=== PATIENT | male | born 1995 | race Caucasian/White ===

== ENCOUNTER 2018-07-19 19:34 | Emergency (ER) | payer OTHER ==
[~2018-07-19] VITALS: Ht 182.9 cm; Wt 90.1 kg
[~2018-07-19 19:34] MED LIST: NO HOME MEDICATIONS; NORCO 325 MG-51 TAB PO; OXYCODONE5 M1 PO; PREDNISONE20 MG PO; PROAIR HFA0.09 MG/AC
[2018-07-19 19:39] VITALS: BP 123/63; PULSE 72; TEMP 98.2
== END 2018-07-19 20:12 | disposition home or self-care (01) ==
LOC: COL.ER 19:34
DX: T16.2XXA Foreign body in left ear, initial encounter (principal)

== ENCOUNTER 2019-02-11 09:52 | Outpatient (RCR) | payer OTHER | END 2019-03-02 10:02 | disposition home or self-care (01) | LOC: WSOH 09:52 | DX: M54.6 Pain in thoracic spine (principal); M62.830 Muscle spasm of back; X50.9XXA Other and unspecified overexertion or strenuous movements or postures, initial encounter; Y92.59 Other trade areas as the place of occurrence of the external cause; Y99.0 Civilian activity done for income or pay ==